=== PATIENT | female | born 1960 | race Caucasian/White ===

== ENCOUNTER 2020-02-13 15:23 | Emergency (ER) | payer SELFPAY ==
--- NOTE | 2020-02-13 16:11 | ED Physician Documentation ---
History of Present Illness - Stated complaint Stated Complaint: HIGH BP - Chief complaint Chief Complaint: General - History obtained from History obtained from: Patient - Additonal information Additional information: 59 yo Woman who has a history of blood pressure issues, was previously treated but she does not remember with what. Its been about 10 years since she saw Had her blood pressure checked. She went to a respiratory clinic to be checked for Covid today and they noted her blood pressure to be about 220/120 and she was referred here for further evaluation and treatment. She has no symptoms, no chest pain, no trouble breathing, no pedal edema, no urinary complaints. Review of Systems Constitutional: denies: Fever, Chills Cardiac: denies: Chest pain / pressure, Palpitations Respiratory: denies: Dyspnea, Cough PD PAST MEDICAL HISTORY - Present Medications Home Medications: Ambulatory Orders Medication Instructions Recorded Confirmed Lisinopril [Prinivil] 10 mg PO DAILY #90 tablet 02/13/20 - Allergies Allergies/Adverse Reactions: Allergies Allergy/AdvReac Type Severity Reaction Status Date / Time No Known Drug Allergies Allergy Verified 02/13/20 15:37 PD ED PE NORMAL - Vitals Vital signs reviewed: Yes - General General: Alert and oriented X 3, No acute distress - HEENT HEENT: PERRL, EOMI - Neck Neck: Supple, no meningeal sign, No bony TTP - Derm Derm: Normal color, Warm and dry - Extremities Extremities: No edema, No calf tenderness / cord - Neuro Neuro: Alert and oriented X 3, Normal speech Results - Vitals Vitals: Vital Signs - 24 hr 02/13/20 02/13/20 02/13/20 15:32 16:12 16:45 Temperature 36.8 C Heart Rate 98 80 Respiratory 20 16 Rate Blood Pressure 137/112 H 212/101 H 175/97 H O2 Saturation 98 98 02/13/20 16:55 Temperature Heart Rate 71 Respiratory 16 Rate Blood Pressure 183/90 H O2 Saturation 98 Oxygen O2 Source Room air - EKG (time done) 1621 Rate: Rate (enter#) (76) Rhythm: NSR, LAE Howes: Normal Intervals: Normal PA QRS: LVH Ischemia: Normal ST segments Computer interpretation: Agree with computer - Labs Labs: Laboratory Tests 02/13/20 16:35 Sodium 142 Potassium 3.4 L Chloride 100 L Carbon Dioxide 27 Anion Gap 15.0 H BUN 10 Creatinine 0.6 Estimated GFR (MDRD) 102 Glucose 108 H Calcium 9.6 Departure - Departure Disposition: 01 Home, Self Care Clinical Impression: Essential hypertension Condition: Good Record reviewed to determine appropriate education?: Yes Instructions: Inhibitors ROB, ED Hypertension New Begin Tx Follow-Up: Chris King MD [Provider Admit Priv/Credential] - Prescriptions: Lisinopril [Prinivil] 10 mg PO DAILY #90 tablet Comments: On your EKG today you did have evidence of left ventricular hypertrophy, which is enlargement of heart likely from longstanding high blood pressure. This does require follow-up with primary care physician as well as treatment of the blood pressure which obviously we are starting today. I am starting the current medication at a fairly low dose, if after 3 days your blood pressure is still higher than 160 is the top number you can double it to 20 mg a day. Follow-up with your primary care physician as soon as possible. Return if worsening.
[2020-02-13 16:56] VITALS: BP 183/90
[2020-02-13 16:59] LABS: CALCIUM 9.6 mg/dL (8.5-10.3); CREATININE 0.6 mg/dL (0.4-1.0)
== END 2020-02-13 17:11 | disposition home or self-care (01) ==
LOC: ED 15:23
DX: I11.9 Hypertensive heart disease without heart failure (principal)
CPT/HCPCS: 36415; 80048; 93005; 99283